=== PATIENT | female | born 1985 | race Caucasian/White ===

== ENCOUNTER 2020-09-13 16:03 | Emergency (ER) | payer OTHER ==
[~2020-09-13] VITALS: Ht 170.2 cm; Wt 73.9 kg
[2020-09-13 16:11] VITALS: BP 97/64; Ht 170.2 cm; Wt 73.9 kg
== END 2020-09-13 16:50 | disposition home or self-care (01) ==
LOC: ED 16:03
DX: L03.116 Cellulitis of left lower limb (principal); J45.909 Unspecified asthma, uncomplicated; Z88.2 Allergy status to sulfonamides